=== PATIENT | male | born 1950 | race Caucasian/White ===

== ENCOUNTER 2017-07-09 11:35 | Emergency (ER) | payer MEDICARE, BC ==
--- NOTE | 2017-07-09 12:38 | CT ---
Head CT Technique: Multiple axial sections through the brain were obtained. Intravenous contrast was not utilized. Comparison: No prior intracranial imaging. Findings: Ventricles along with basal cisterns and sulci over the convexities are within normal limits for the patient's age. No abnormal parenchymal densities are seen. No evidence of intracranial hemorrhage. No midline shift or mass effect is seen. Bone window settings were reviewed which shows minimal mucosal thickening within the ethmoid sinuses. No acute calvarial abnormality is seen. Impression: 1. Minimal sinus findings which are incidental. 2. No acute intracranial abnormality is identified on noncontrast head CT study. Diagnostic code #2
--- NOTE | 2017-07-09 12:44 | CT ---
CT cervical spine Technique: Multiple axial sections were obtained from above C1 inferiorly to the bottom of T1. Reconstructed sagittal and coronal images were reviewed. Findings: Mastoid sinuses and middle ear cavities are clear. Posterior skull base is intact. Vertebral body heights and disc spaces are maintained. Vertebral bodies and posterior arches are intact with no fracture being seen. No bony central or bony neural foraminal stenosis is seen. Incidental ligamentum nuchal calcification is seen. No abnormal subluxation is seen. Impression: 1. Nothing acute is seen on CT study of the cervical spine. No significant degenerative change is seen. Diagnostic code #2
--- NOTE | 2017-07-09 13:08 | EDM.PDOC ---
ED HPI GENERAL MEDICAL PROBLEM - General Chief Complaint: Headache Stated Complaint: HEAD INJURY 1 WEEK AGO/HEADACHES Time Seen by Provider: 07/09/17 11:45 Source of Information: Reports: Patient, Family History Limitations: Reports: No Limitations - History of Present Illness INITIAL COMMENTS - FREE TEXT/NARRATIVE: The patient presents with a headache and some neck pain. He says about 1 week ago he slipped and fell on the ice. He hit his head and had an LOC for a few seconds. He is now having headaches and some neck pain pain. He has some weakness in his left hand at times. He had a problem with this before the fall but it is some what worse after the fall. He says he has pain in his left upper back and then it goes to his neck and the back of his head. He has no fever, chills, chest pain, shortness of breath, abdominal pain, nausea or vomiting. Onset: Sudden Duration: Week(s): (1) Location: Reports: Head Quality: Reports: Sharp Severity: Moderate Improves with: Reports: None Worsens with: Reports: None Context: Reports: Trauma (Fell on the ice) Associated Symptoms: Reports: Headaches. Denies: Chest Pain, Fever/Chills, Nausea/Vomiting, Shortness of Breath Headache Pain Score (Numeric/FACES): 7 - Related Data Allergies Allergy/AdvReac Type Severity Reaction Status Date / Time No Known Allergies Allergy Verified 07/09/17 11:52 Home Meds: Home Meds Lisinopril [Prinivil] 20 mg PO BID 07/09/17 [History] glipiZIDE [Glucotrol XL] 0 mg PO BID 07/09/17 [History] metFORMIN [Glucophage] 850 mg PO BID 07/09/17 [History] Past Medical History HEENT History: Reports: Hard of Hearing Other HEENT History: left ear drum blown out Cardiovascular History: Reports: Hypertension Respiratory History: Reports: COPD Other Respiratory History: COPD not treated Gastrointestinal History: Reports: Chronic Constipation, Other (See Below) Other Gastrointestinal History: gallbladder issues self diagnoed Endocrine/Metabolic History: Reports: Diabetes, Type II Dermatologic History: Reports: Eczema - Past Surgical History HEENT Surgical History: Reports: Tonsillectomy GI Surgical History: Reports: Appendectomy Social & Family History - Family History Family Medical History: Noncontributory - Tobacco Use Smoking Status *Q: Former Smoker Used Tobacco, but Quit: Yes Month Tobacco Last Used: 1972 - Caffeine Use Caffeine Use: Reports: Coffee, Energy Drinks Other Caffeine Use: 5 hour energy once in a while - Recreational Drug Use Recreational Drug Use: No ED ROS GENERAL - Review of Systems Review Of Systems: See Below Constitutional: Reports: No Symptoms HEENT: Reports: No Symptoms Respiratory: Reports: No Symptoms Cardiovascular: Reports: No Symptoms Endocrine: Reports: No Symptoms GI/Abdominal: Reports: No Symptoms : Reports: No Symptoms Musculoskeletal: Reports: Neck Pain Skin: Reports: No Symptoms Neurological: Reports: Headache ED EXAM, HEAD INJURY - Physical Exam Exam: See Below Exam Limited By: No Limitations General Appearance: Alert, No Apparent Distress Head: Atraumatic, Normocephalic Ears: Normal External Exam Nose: Normal Inspection Neck: Tenderness (Mild tenderness with deep palpation) Respiratory: No Respiratory Distress, Lungs Clear, Normal Breath Sounds Cardiovascular: Regular Rate, Rhythm, No Edema, No Murmur GI/Abdominal Exam: Soft, Non-Tender, No Organomegaly, No Mass Extremities: Normal Inspection Neurologic: Alert, Normal Mood/Affect, Oriented x 3, Other (Mild weakness in his hand) Course - Vital Signs Last Recorded V/S: Last Vital Signs Temp 97.2 F 07/09/17 11:46 Pulse 80 07/09/17 11:46 Resp 18 07/09/17 11:46 BP 139/99 H 07/09/17 11:46 Pulse Ox 96 07/09/17 11:46 - Re-Assessments/Exams Free Text/Narrative Re-Assessment/Exam: 07/09/17 13:[address] of his head and cervical spine show nothing acute. I will have him follow up with Dr Caceres and Dr Barrera for home care manager rn. Departure - Departure Time of Disposition: 13:15 Disposition: Home, Self-Care 01 Condition: Good Clinical Impression: Tension-type headache, Left arm weakness Fall Qualifiers: Encounter type: initial encounter Qualified Code(s): W19.XXXA - Unspecified fall, initial encounter - Discharge Information Referrals: PCP,Not In Area [Primary Care Provider] - Omer Caceres [Physician] - 1 Week Additional Instructions: Follow up with Dr Caceres. Also follow up with Dr Barrera. Please return if you are worse.
== END 2017-07-09 13:23 | disposition home or self-care (01) ==
LOC: JD.ED 11:35
DX: G44.209 Tension-type headache, unspecified, not intractable (principal); M62.81 Muscle weakness (generalized); I10 Essential (primary) hypertension; E11.9 Type 2 diabetes mellitus without complications; Z87.891 Personal history of nicotine dependence; Z79.84 Long term (current) use of oral hypoglycemic drugs
CPT/HCPCS: 70450; 70450-26; 72125; 72125-26; 99283; 99284-25

== ENCOUNTER 2018-08-22 09:50 | Day surgery (SDC) | payer MEDICARE, BC ==
[~2018-08-22 09:50] MED LIST: Lactated Ringers 1,000 ML IV SCH; Lidocaine 1% 6 ML ONE; Lidocaine 1%/Sod Bicarbonate in NS 8.4% 1 ML Syringe IDERM PRN; Propofol 200 MG/20 ML SDV ONE; Sodium Chloride 0.9% 10 ML Syringe FLUSH PRN; fentaNYL 100 MCG/2 ML SDV ONE
--- NOTE | 2018-08-22 10:18 | PCM.PREANE ---
Preanesthetic Assessment - Anesthesia/Transfusion/Family Hx Anesthesia History: Prior Anesthesia Without Reaction Family History of Anesthesia Reaction: No Transfusion History: No Prior Transfusion(s) - Review of Systems General: No Symptoms Pulmonary: No Symptoms (early COPD) Cardiovascular: Dyspnea on Exertion Gastrointestinal: No Symptoms Neurological: Numbness ("once in a while fingers") Other: Reports: Diabetes (07:00 gluco check 150) - Physical Assessment NPO Status Date: 08/21/18 NPO Status Time: 00:00 Pulse: 79 O2 Sat by Pulse Oximetry: 94 Respiratory Rate: 16 Blood Pressure: 139/103 Temperature: 36.6 C Height: 1.88 m Weight: 107.501 kg ASA Class: 3 Mental Status: Alert & Oriented x3 Airway Class: Mallampati = 1 Dentition: Reports: Bells(s) ROM/Head Extension: Full ("neck not in alignment") Lungs: Clear to Auscultation, Normal Respiratory Effort Cardiovascular: Regular Rate, Regular Rhythm, Murmurs - Allergies Allergies/Adverse Reactions: Allergies Allergy/AdvReac Type Severity Reaction Status Date / Time diphenhydramine Allergy Dizziness Verified 08/21/18 14:35 [From Benadryl] - Blood Blood Available: No Product(s) Available: None - Anesthesia Plan Pre-Op Medication Ordered: None - Acknowledgements Anesthesia Type Planned: MAC Pt an Appropriate Candidate for the Planned Anesthesia: Yes Alternatives and Risks of Anesthesia Discussed w Pt/Guardian: Yes Pt/Guardian Understands and Agrees with Anesthesia Plan: Yes PreAnesthesia Questionnaire HEENT History: Reports: Hard of Hearing Other HEENT History: left ear drum blown out Cardiovascular History: Reports: Heart Murmur, High Cholesterol, Hypertension Respiratory History: Reports: COPD, SOB Other Respiratory History: COPD not treated Gastrointestinal History: Reports: Chronic Constipation, Other (See Below) Other Gastrointestinal History: gallbladder issues self diagnoed Genitourinary History: Reports: Other (See Below) Other Genitourinary History: prostatitis 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 Musculoskeletal History: Reports: None Neurological History: Reports: None Psychiatric History: Reports: None Endocrine/Metabolic History: Reports: Diabetes, Type II, Vitamin D Deficiency Hematologic History: Reports: None Immunologic History: Reports: None Oncologic (Cancer) History: Reports: None Dermatologic History: Reports: Cellulitis, Eczema, Other (See Below) Other Dermatologic History: herpes simplex, tinea crusis - Past Surgical History Head Surgeries/Procedures: Reports: None HEENT Surgical History: Reports: Tonsillectomy Cardiovascular Surgical History: Reports: None Respiratory Surgical History: Reports: None GI Surgical History: Reports: Appendectomy, Colonoscopy Male Surgical History: Reports: Vasectomy Endocrine Surgical History: Reports: None Neurological Surgical History: Reports: None Musculoskeletal Surgical History: Reports: None Oncologic Surgical History: Reports: None Dermatological Surgical History: Reports: None - SUBSTANCE USE Smoking Status *Q: Former Smoker Recreational Drug Use History: No - HOME MEDS Home Medications: Home Meds metFORMIN [Glucophage] 850 mg PO BID 07/09/17 [History] Acyclovir [Zovirax] 400 mg PO BID 08/21/18 [History] Acyclovir [Zovirax] 400 mg PO TID PRN 08/21/18 [History] Ascorbic Acid [Vitamin C] 500 mg PO DAILY 08/21/18 [History] Cholecalciferol (Vitamin D3) [Vitamin D3] 2,000 unit PO DAILY 08/21/18 [History] Chromium Picolinate 1,000 mcg PO DAILY 08/21/18 [History] Cinnamon Bark [Cinnamon] 500 g PO DAILY 08/21/18 [History] Glimepiride 1 mg PO BID 08/21/18 [History] Lactobacillus Combination No.4 [Probiotic] 1 cap PO DAILY 08/21/18 [History] Lisinopril 20 mg PO BID 08/21/18 [History] Multivitamin [Daily Tres] 1 tab PO DAILY 08/21/18 [History] Terbinafine [LamISIL] 250 mg PO BID PRN 08/21/18 [History] Vitamin B Complex 1 cap PO DAILY 08/21/18 [History] - CURRENT (IN HOUSE) MEDS Current Meds: Current Medications Lactated Ringer's (Ringers, Lactated) 1,000 mls @ 125 mls/hr IV ASDIRECTED MARC Stop: 08/22/18 23:00 Lidocaine/Sodium Bicarbonate (Buffered Lidocaine 1% In Ns 8.4%) 0.25 ml IDERM ONETIME PRN PRN Reason: Prior to IV Start Stop: 08/22/18 18:00 Sodium Chloride (Saline Flush) 10 ml FLUSH ASDIRECTED PRN PRN Reason: Keep Vein Open Stop: 08/22/18 18:00 Discontinued Medications Fentanyl (Sublimaze) Confirm Administered Dose 100 mcg .ROUTE .STK-MED ONE Stop: 08/22/18 07:10 Lidocaine HCl (Xylocaine-Mpf 1%) Confirm Administered Dose 6 mls @ as directed .ROUTE .STK-MED ONE Stop: 08/22/18 07:09 Propofol (Diprivan 20 Ml) Confirm Administered Dose 200 mg .ROUTE .STK-MED ONE Stop: 08/22/18 07:10
--- NOTE | 2018-08-22 11:01 | PCM48HPAN ---
Post Anesthesia Note - EVALUATION WITHIN 48HRS OF ANESTHETIC Vital Signs in Normal Range: Yes Patient Participated in Evaluation: Yes Respiratory Function Stable: Yes Airway Patent: Yes Cardiovascular Function Stable: Yes Hydration Status Stable: Yes Pain Control Satisfactory: Yes Nausea and Vomiting Control Satisfactory: Yes Mental Status Recovered: Yes
--- NOTE | 2018-08-22 11:39 | OR ---
DATE OF OPERATION: 08/22/2018 SURGEON: Adriano Cardenas MD PREOPERATIVE DIAGNOSIS: Screening colonoscopy. POSTOPERATIVE DIAGNOSIS: Screening colonoscopy. OPERATION PERFORMED: Total colonoscopy. ANESTHESIA: MAC. SPECIMEN: None. OPERATIVE FINDING: Significant melanosis coli indicating laxative use. RECOMMENDATION: Followup screening colonoscopy in 10 years or sooner for symptoms. INDICATION FOR PROCEDURE: This 68-year-old male was referred for screening colonoscopy. DESCRIPTION OF PROCEDURE: After adequate preparation, a colonoscope was inserted into the rectum. This was passed all the way to the cecum. Confirmation of the cecum was made by visualization of the ileocecal valve and palpation in the right lower quadrant. The bowel prep was good. He does have significant melanosis coli. Photographs of different sections of the colon were taken. This made it somewhat difficult to evaluate the mucosa adequately, but I did not find any evidence of polyp growth or abnormalities. Air was suctioned from the colon and rectum and the scope removed. ESTIMATED BLOOD LOSS: MMODAL /[id number]
== END 2018-08-22 11:36 | disposition home or self-care (01) ==
LOC: JD.SDS 09:50
PROVIDERS: ATTEND Surgery
DX: Z12.11 Encounter for screening for malignant neoplasm of colon (principal); K63.89 Other specified diseases of intestine; I10 Essential (primary) hypertension; E11.9 Type 2 diabetes mellitus without complications; E78.00 Pure hypercholesterolemia, unspecified; J44.9 Chronic obstructive pulmonary disease, unspecified; Z88.8 Allergy status to other drugs, medicaments and biological substances; Z87.891 Personal history of nicotine dependence; Z83.71 Family history of colonic polyps; Z79.84 Long term (current) use of oral hypoglycemic drugs; Z79.899 Other long term (current) drug therapy
CPT/HCPCS: G0121; J2001; J2704; J3010; J7120; 00812

== ENCOUNTER 2019-05-02 08:58 | Emergency (ER) | payer MEDICARE, BC ==
[2019-05-02] MEDS ORDERED: Ketorolac 30 MG/ML SDV IVPUSH ONE (09:24)
[2019-05-02] MEDS ORDERED: Sodium Chloride 0.9% 10 ML Syringe FLUSH PRN (09:24)
[2019-05-02] MEDS ORDERED: Ondansetron 4 MG/2 ML SDV IVPUSH ONE (09:24)
--- NOTE | 2019-05-02 09:51 | EDM.PDOC ---
ED HPI GENERAL MEDICAL PROBLEM - General Chief Complaint: Headache Stated Complaint: FEELS LIKE HE IS HAVING A STROKE Time Seen by Provider: 05/02/19 09:05 Source of Information: Reports: Patient, Family History Limitations: Reports: No Limitations - History of Present Illness INITIAL COMMENTS - FREE TEXT/NARRATIVE: The patient presents with a headache. He woke up with it this morning. The pain is in the back of the head and neck. He checked his blood pressure and it was 150/100. He had some numbness on both sides of his face with more on the left side. He has no blurred vision or double vision. He has no fever, chills or cough. He has no chest pain, shortness of breath, or abdominal pain. He has some nausea but no vomiting. He has no numbness or weakness in his arms or legs. He does have a history of hypertension. Onset: Gradual Duration: Hour(s): Location: Reports: Head, Neck Quality: Reports: Sharp Severity: Moderate Improves with: Reports: None Worsens with: Reports: None Associated Symptoms: Reports: Headaches. Denies: Chest Pain, Cough, Fever/ Chills, Nausea/Vomiting, Shortness of Breath Head Pain Score (Numeric/FACES): 10 - Related Data Allergies Allergy/AdvReac Type Severity Reaction Status Date / Time diphenhydramine Allergy Dizziness Verified 05/02/19 09:03 [From Nevaeh] Home Meds: Home Meds metFORMIN [Glucophage] 850 mg PO BID 07/09/17 [History] Acyclovir [Zovirax] 400 mg PO BID 08/21/18 [History] Acyclovir [Zovirax] 400 mg PO TID PRN 08/21/18 [History] Ascorbic Acid [Vitamin C] 500 mg PO DAILY 08/21/18 [History] Cholecalciferol (Vitamin D3) [Vitamin D3] 2,000 unit PO DAILY 08/21/18 [History] Chromium Picolinate 1,000 mcg PO DAILY 08/21/18 [History] Cinnamon Bark [Cinnamon] 500 g PO DAILY 08/21/18 [History] Glimepiride 1 mg PO BID 08/21/18 [History] Lactobacillus Combination No.4 [Probiotic] 1 cap PO DAILY 08/21/18 [History] Lisinopril 20 mg PO BID 08/21/18 [History] Multivitamin [Daily Tres] 1 tab PO DAILY 08/21/18 [History] Terbinafine [LamISIL] 250 mg PO BID PRN 08/21/18 [History] Vitamin B Complex 1 cap PO DAILY 08/21/18 [History] Past Medical History HEENT History: Reports: Hard of Hearing Other HEENT History: left ear drum blown out Cardiovascular History: Reports: Heart Murmur, Hypertension Respiratory History: Reports: COPD, SOB Other Respiratory History: COPD not treated Gastrointestinal History: Reports: Chronic Constipation, Other (See Below) Other Gastrointestinal History: gallbladder issues self diagnoed Genitourinary History: Reports: Other (See Below) Other Genitourinary History: prostatitis 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 Musculoskeletal History: Reports: None Neurological History: Reports: None Psychiatric History: Reports: None Endocrine/Metabolic History: Reports: Diabetes, Type II, Vitamin D Deficiency Hematologic History: Reports: None Immunologic History: Reports: None Oncologic (Cancer) History: Reports: None Dermatologic History: Reports: Cellulitis, Eczema, Other (See Below) Other Dermatologic History: herpes simplex, tinea crusis - Past Surgical History Head Surgeries/Procedures: Reports: None HEENT Surgical History: Reports: Tonsillectomy Cardiovascular Surgical History: Reports: None Respiratory Surgical History: Reports: None GI Surgical History: Reports: Appendectomy, Colonoscopy Male Surgical History: Reports: Vasectomy Endocrine Surgical History: Reports: None Neurological Surgical History: Reports: None Musculoskeletal Surgical History: Reports: None Oncologic Surgical History: Reports: None Dermatological Surgical History: Reports: None Social & Family History - Family History Family Medical History: Noncontributory - Tobacco Use Smoking Status *Q: Never Smoker Second Hand Smoke Exposure: No - Caffeine Use Caffeine Use: Reports: Coffee Other Caffeine Use: 5 hour energy once in a while - Recreational Drug Use Recreational Drug Use: No ED ROS GENERAL - Review of Systems Review Of Systems: See Below Constitutional: Reports: No Symptoms HEENT: Reports: No Symptoms Respiratory: Reports: No Symptoms Cardiovascular: Reports: No Symptoms Endocrine: Reports: No Symptoms GI/Abdominal: Reports: Nausea. Denies: Abdominal Pain, Vomiting : Reports: No Symptoms Musculoskeletal: Reports: Neck Pain Neurological: Reports: Headache - Physical Exam Exam: See Below Exam Limited By: No Limitations General Appearance: Alert, No Apparent Distress Eye Exam: Bilateral Eye: EOMI Ears: Normal External Exam Nose: Normal Inspection Throat/Mouth: Normal Inspection Head Exam: Atraumatic, Normocephalic Neck: Normal Inspection Respiratory/Chest: No Respiratory Distress, Lungs Clear, Normal Breath Sounds Cardiovascular: Regular Rate, Rhythm, No Edema, No Murmur GI/Abdominal: Soft, Non-Tender, No Organomegaly, No Mass Neuro Exam (Abbreviated): Alert, Oriented, No Motor/Sensory Deficits Course - Vital Signs Last Recorded V/S: Last Vital Signs Temp 98.4 F 05/02/19 09:04 Pulse 69 05/02/19 09:04 Resp 13 05/02/19 09:04 BP 144/101 H 05/02/19 09:04 Pulse Ox 96 05/02/19 09:04 - Orders/Labs/Meds Orders: Active Orders 24 hr Category Date Time Status Peripheral IV Care [RC] . DIRECTED Care 05/02/19 09:24 Active Sodium Chloride 0.9% [Saline Flush] Med 05/02/19 09:24 Active 10 ml FLUSH ASDIRECTED PRN Peripheral IV Insertion Adult [OM.PC] Routine Oth 05/02/19 09:24 Ordered Medication Orders Sodium Chloride (Saline Flush) 10 ml FLUSH ASDIRECTED PRN PRN Reason: Keep Vein Open Last Admin: 05/02/19 09:36 Dose: 10 ml Meds: Medications Generic Name Dose Route Start Last Admin Trade Name Freq PRN Reason Stop Dose Admin Sodium Chloride 10 ml 05/02/19 09:24 05/02/19 09:36 Saline Flush FLUSH 10 ml ASDIRECTED PRN Administration Keep Vein Open Discontinued Medications Generic Name Dose Route Start Last Admin Trade Name Freq PRN Reason Stop Dose Admin Ketorolac Tromethamine 30 mg 05/02/19 09:24 05/02/19 09:35 Toradol IVPUSH 05/02/19 09:25 30 mg ONETIME ONE Administration Ondansetron HCl 4 mg 05/02/19 09:24 05/02/19 09:35 Zofran IVPUSH 05/02/19 09:25 4 mg ONETIME ONE Administration - Re-Assessments/Exams Free Text/Narrative Re-Assessment/Exam: 05/02/19 09:52 I ordered an IV saline lock, toradol 30mg IV, zofran 4mg IV, and a CT of his head. 11/02/19 10:[address] looks good. His headache is gone. I will not make any changes to his BP meds. I will discharge him home. Departure - Departure Time of Disposition: 10:40 Disposition: Home, Self-Care 01 Condition: Good Clinical Impression: Tension-type headache - Discharge Information *PRESCRIPTION DRUG MONITORING PROGRAM REVIEWED*: No *COPY OF PRESCRIPTION DRUG MONITORING REPORT IN PATIENT DOMINGUEZ: No Referrals: Fransisca Meyers MD [Primary Care Provider] - 1 Week Forms: ED Department Discharge Additional Instructions: Take your medication as prescribed. Follow up with Dr Meyers. Please return if you are worse. - My Orders Last 24 Hours: My Active Orders 05/02/19 09:24 Peripheral IV Care [RC] . DIRECTED Sodium Chloride 0.9% [Saline Flush] 10 ml FLUSH ASDIRECTED PRN Peripheral IV Insertion Adult [OM.PC] Routine - Assessment/Plan Last 24 Hours: My Active Orders 05/02/19 09:24 Peripheral IV Care [RC] . DIRECTED Sodium Chloride 0.9% [Saline Flush] 10 ml FLUSH ASDIRECTED PRN Peripheral IV Insertion Adult [OM.PC] Routine
--- NOTE | 2019-05-02 10:12 | CT ---
Head CT Technique: Multiple axial sections through the brain were obtained. Intravenous contrast was not utilized. Comparison: No prior intracranial imaging is available. Findings: Ventricles along with basal cisterns and sulci over the convexities appear within normal limits for the patient's age. No abnormal parenchymal densities are seen. No evidence of intracranial hemorrhage. No midline shift or mass effect is seen. Mild areas of mucosal thickening are seen within the ethmoid and frontal sinuses. No air-fluid levels are seen within the paranasal sinuses. Mastoid sinuses are clear. No acute calvarial abnormality is seen. Impression: 1. Mild sinus findings which are most likely chronic. 2. No acute intracranial abnormality is identified on noncontrast head CT exam. Diagnostic code #2
== END 2019-05-02 11:09 | disposition home or self-care (01) ==
LOC: JD.ED 08:58
DX: G44.209 Tension-type headache, unspecified, not intractable (principal); I10 Essential (primary) hypertension; E11.9 Type 2 diabetes mellitus without complications; Z88.8 Allergy status to other drugs, medicaments and biological substances; Z79.84 Long term (current) use of oral hypoglycemic drugs; Z79.899 Other long term (current) drug therapy
CPT/HCPCS: 70450; 96374; 96375; 99284; J1885; J2405; 99283